=== PATIENT | female | born 1990 | race Caucasian/White ===

== ENCOUNTER 2020-08-13 14:41 | Outpatient (CLI) | payer OTHER ==
[2020-08-13 15:42] LABS: HEMOGLOBIN 10.2 gm/dl (12.3-15.3); RED BLOOD COUNT 4.18 M/UL (4.00-5.10); WHITE BLOOD COUNT 12.7 K/UL (4.5-11.0)
[2020-08-14] MEDS ORDERED: PRENATABS FA T1 EACH PO (06:21)
[2020-08-14] MEDS ORDERED: COLACE 100MG C100 MG PO (13:18)
[2020-08-14] MEDS ORDERED: HYDROCODON-ACE1 EAC6 PO (13:18)
[2020-08-14] MEDS ORDERED: IBUPROFEN600 MG PO (13:18)
== END 2020-08-13 16:04 | disposition home or self-care (01) ==
LOC: GENOP 14:41
PROVIDERS: Obstetrics & Gynecology
DX: Z01.812 Encounter for preprocedural laboratory examination (principal); O36.60X0 Maternal care for excessive fetal growth, unspecified trimester, not applicable or unspecified; Z20.822 Contact with and (suspected) exposure to COVID-19
CPT/HCPCS: 36415; 81001; 85025; U0002

== ENCOUNTER 2020-08-14 05:28 | Inpatient (IN) | payer OTHER ==
[~2020-08-14] VITALS: Ht 162.6 cm; Wt 85.3 kg
[2020-08-14] MEDS ORDERED: PRENATABS FA T1 EACH PO (06:21)
[2020-08-14] MEDS ORDERED: IBUPROFEN600 MG PO (13:18)
[2020-08-14] MEDS ORDERED: COLACE 100MG C100 MG PO (13:18)
[2020-08-14] MEDS ORDERED: HYDROCODON-ACE1 EAC6 PO (13:18)
[2020-08-15] MEDS ORDERED: IRON325 M1 PO (09:10)
== END 2020-08-15 16:38 | disposition home or self-care (01) | DRG 788 ==
LOC: OB 05:28
PROVIDERS: ADMIT Obstetrics & Gynecology
PROC: 4A1HXCZ Monitoring of Products of Conception, Cardiac Rate, External Approach (ICD-10-PCS; 2020-08-14)
PROC: 10D00Z1 Extraction of Products of Conception, Low, Open Approach (ICD-10-PCS; principal; 2020-08-14 10:00)
DX: O36.63X0 Maternal care for excessive fetal growth, third trimester, not applicable or unspecified (principal); Z3A.39 39 weeks gestation of pregnancy; Z37.0 Single live birth; Z20.822 Contact with and (suspected) exposure to COVID-19; Z83.3 Family history of diabetes mellitus; Z82.49 Family history of ischemic heart disease and other diseases of the circulatory system; Z87.891 Personal history of nicotine dependence; Z79.82 Long term (current) use of aspirin; Z91.038 Other insect allergy status
CPT/HCPCS: 36415; 81001; 82800; 85014; 85018; 85025; 90471; C9113; J0690; J1170; J1885; J2274; J2405; J2550; J2590; J3010; J7120; U0002